=== PATIENT | male | born 1935 | race Two or more races ===

== ENCOUNTER 2017-12-14 17:28 | Inpatient (IN) | payer OTHER, MEDICAID ==
[~2017-12-14] VITALS: Ht 157.5 cm; Wt 65.8 kg
[2017-12-14 19:15] LABS: Basophils # (auto) 0 uL; Basophils % (auto) 0.4 % (0.0-2.0); Eosinophils # (auto) 0.4 uL; Eosinophils % (auto) 7.1 % (0.0-7.0); Hematocrit 38.8 % (41.0-53.0); Hemoglobin 13.2 g/dL (13.5-17.5); Lymphocytes # (auto) 1.3 uL; Lymphocytes % (auto) 20.2 % (10.0-50.0); Mean Corpuscular Hemoglobin 32.5 pg (28.0-32.0); Mean Corpuscular Hgb Conc. 34.2 g/dL (32.0-36.0); Mean Corpuscular Volume 95.2 fL (80.0-100.0); Monocytes # (auto) 0.5 uL; Monocytes % (auto) 8.1 % (0.0-12.0); Neutrophils % (auto) 64.2 % (37.0-80.0); Nucleated Red Blood Cells % 0.1 %; Platelet Count (auto) 113 10^3/uL (140-450); Red Blood Cells 4.07 10^6/uL (4.5-5.90); Red Cell Distribution Width 13.1 % (11.8-14.3); White Blood Cell 6.2 10^3/uL (4.4-10.8)
[2017-12-14 19:17] LABS: Chloride 106 mmol/L (98-107); Potassium 3.8 mmol/L (3.5-5.1); Sodium 140 mmol/L (136-145)
[2017-12-14 19:22] LABS: Albumin 3.3 g/dL (3.4-5.0); Anion Gap 9 (5-15); BUN/Creatinine Ratio 20.7; Blood Urea Nitrogen 24 mg/dL (7-18); Calcium 8.9 mg/dL (8.5-10.1); Carbon Dioxide 25 mmol/L (21-32); GFR African American 78 mL/min; GFR Non-African American 64 mL/min; Glucose 119 mg/dL (74-106); Magnesium 2.2 mg/dL (1.6-2.6)
[2017-12-14 19:29] LABS: Alanine Aminotransferase 22 U/L (16-61); Alkaline Phosphatase 71 U/L (45-117); Aspartate Aminotransferase 17 U/L (15-37); Bilirubin, Total 0.5 mg/dL (0.2-1.0); Total Protein 7.3 g/dL (6.4-8.2)
[2017-12-14 20:17] LABS: INR 1.05 (0.9-1.15); Partial Thromboplastin Time 25.7 sec (22.64-33.71); Prothrombin Time 11.4 sec (9.37-12.3)
[2017-12-14 21:30] LABS: Urine Bacteria FEW /hpf (None Seen); Urine Blood Negative /uL (Negative); Urine Hyaline Cast MOD /lpf (0 - 2); Urine Mucus FEW (None Seen); Urine Specific Gravity 1.017 (1.001-1.035); Urine WBC 2 /hpf (0 - 3)
[2017-12-15] VITALS (7 sets, daily range): BP systolic 113–132; BP diastolic 54–72
[2017-12-15] MEDS ORDERED: ASPirin 325 MG TAB PO ONE (00:15)
[2017-12-15] MEDS ORDERED: cefTRIAXone 1GM/10ml IVPUSH 10 ML IV ONE (00:15)
[2017-12-15] MEDS ORDERED: HYDROcodone-ACET 5/325MG TAB PO PRN (01:45)
[2017-12-15] MEDS ORDERED: MORPHINE SULFATE 4 MG/ML SYR/VIAL IV PRN (01:45)
[2017-12-15] MEDS ORDERED: ACETAMINOPHEN 500 MG TAB PO PRN (01:45)
[2017-12-15] MEDS ORDERED: ONDANSETRON HCL 4 MG/2 ML VIAL IV PRN (01:45)
[2017-12-15] MEDS ORDERED: NITROGLYCERIN 0.4 MG SL TAB SL PRN (01:45)
[2017-12-15] MEDS ORDERED: DEXTROSE (50%) 50ML SYRG IV PRN (04:15)
[2017-12-15] MEDS ORDERED: NAPR-505 PO (04:47)
[2017-12-15] MEDS ORDERED: METF-929 PO (04:47)
[2017-12-15] MEDS ORDERED: PANT40TA2 PO (04:47)
[2017-12-15] MEDS ORDERED: GLIM1TAB2 PO (04:47)
[2017-12-15] MEDS ORDERED: PNEUMOCOCCAL VACC POLYS 25 MCG/0.5 ML VIAL IM ONE (05:45)
[2017-12-15] MEDS: InsuLIN REG 1unit/0.01ml Soln (100units/ml) SC SCH ×4 (06:11→22:24)
[2017-12-15] MEDS: ACCU-CHEK COMFORT CURVE STRIP VI SCH ×4 (06:12→22:24)
[2017-12-15 07:36] LABS: Basophils # (auto) 0 uL; Basophils % (auto) 0.2 % (0.0-2.0); Eosinophils # (auto) 0.3 uL; Eosinophils % (auto) 5.2 % (0.0-7.0); Hematocrit 38.3 % (41.0-53.0); Hemoglobin 12.9 g/dL (13.5-17.5); Lymphocytes # (auto) 1.1 uL; Lymphocytes % (auto) 17.5 % (10.0-50.0); Mean Corpuscular Hemoglobin 32.2 pg (28.0-32.0); Mean Corpuscular Hgb Conc. 33.8 g/dL (32.0-36.0); Mean Corpuscular Volume 95.3 fL (80.0-100.0); Monocytes # (auto) 0.5 uL; Monocytes % (auto) 7.2 % (0.0-12.0); Neutrophils # (auto) 4.6 uL; Neutrophils % (auto) 69.9 % (37.0-80.0); Nucleated Red Blood Cells % 0.1 %; Platelet Count (auto) 205 10^3/uL (140-450); Red Blood Cells 4.02 10^6/uL (4.5-5.90); Red Cell Distribution Width 13.2 % (11.8-14.3); White Blood Cell 6.6 10^3/uL (4.4-10.8)
[2017-12-15 08:26] LABS: BUN/Creatinine Ratio 20.9; Calcium 8.5 mg/dL (8.5-10.1); Potassium 3.5 mmol/L (3.5-5.1)
[2017-12-15] MEDS: PANTOPRAZOLE 40 MG TAB PO SCH (10:04)
[2017-12-15] MEDS ORDERED: SOD CHL 0.45% 1,000 ML IV ONE (10:45)
[2017-12-15] MEDS: predniSONE 20 MG TAB PO SCH (11:31)
[2017-12-15] MEDS: ALBUTEROL SULF 2.5 MG/0.5ML(0.5%) NEB SOLN NEB SCH ×2 (13:00→19:39)
[2017-12-15] MEDS ORDERED: cefTRIAXone 1GM/10ml IVPUSH 10 ML IV SCH (22:00)
[2017-12-16] MEDS: ALBUTEROL SULF 2.5 MG/0.5ML(0.5%) NEB SOLN NEB SCH ×4 (01:00→19:37)
[2017-12-16 05:00] VITALS: BP 98/51
[2017-12-16] MEDS: ACCU-CHEK COMFORT CURVE STRIP VI SCH ×4 (06:11→20:51)
[2017-12-16] MEDS: InsuLIN REG 1unit/0.01ml Soln (100units/ml) SC SCH ×3 (06:12→17:55)
[2017-12-16 06:37] LABS: Basophils # (auto) 0 uL; Basophils % (auto) 0.1 % (0.0-2.0); Eosinophils # (auto) 0 uL; Eosinophils % (auto) 0.1 % (0.0-7.0); Hematocrit 35.5 % (41.0-53.0); Hemoglobin 12.5 g/dL (13.5-17.5); Lymphocytes # (auto) 0.8 uL; Lymphocytes % (auto) 11.4 % (10.0-50.0); Mean Corpuscular Hemoglobin 33.2 pg (28.0-32.0); Mean Corpuscular Hgb Conc. 35.4 g/dL (32.0-36.0); Mean Corpuscular Volume 93.9 fL (80.0-100.0); Monocytes # (auto) 0.5 uL; Monocytes % (auto) 6.8 % (0.0-12.0); Neutrophils # (auto) 5.4 uL; Neutrophils % (auto) 81.6 % (37.0-80.0); Nucleated Red Blood Cells % 0.1 %; Platelet Count (auto) 156 10^3/uL (140-450); Red Blood Cells 3.78 10^6/uL (4.5-5.90); Red Cell Distribution Width 12.8 % (11.8-14.3); White Blood Cell 6.6 10^3/uL (4.4-10.8)
[2017-12-16 06:46] LABS: Calcium 8.8 mg/dL (8.5-10.1); Potassium 3.7 mmol/L (3.5-5.1)
[2017-12-16 09:00] VITALS: BP 106/62
[2017-12-16] MEDS ORDERED: DEXTROSE (50%) 50ML SYRG IV PRN (11:00)
[2017-12-16] MEDS: predniSONE 20 MG TAB PO SCH (11:22)
[2017-12-16] MEDS: PANTOPRAZOLE 40 MG TAB PO SCH (11:23)
[2017-12-16 13:00] VITALS: BP 131/55
[2017-12-16 17:00] VITALS: BP 125/63
[2017-12-16] MEDS ORDERED: InsuLIN REG 1unit/0.01ml Soln (100units/ml) SC SCH (22:00)
[2017-12-16 22:49] VITALS: BP 107/58
[2017-12-17] MEDS: ALBUTEROL SULF 2.5 MG/0.5ML(0.5%) NEB SOLN NEB SCH ×3 (00:39→11:58)
[2017-12-17] MEDS: InsuLIN REG 1unit/0.01ml Soln (100units/ml) SC SCH ×2 (05:41→11:45)
[2017-12-17] MEDS: ACCU-CHEK COMFORT CURVE STRIP VI SCH ×2 (05:41→11:45)
[2017-12-17 05:44] VITALS: BP 126/65
[2017-12-17 07:00] LABS: Potassium 3.8 mmol/L (3.5-5.1)
[2017-12-17 07:15] LABS: BUN/Creatinine Ratio 31.4; Calcium 8.7 mg/dL (8.5-10.1)
[2017-12-17 09:00] VITALS: BP 120/60
[2017-12-17 09:49] LABS: Basophils # (auto) 0.1 uL; Basophils % (auto) 1.3 % (0.0-2.0); Eosinophils # (auto) 0 uL; Eosinophils % (auto) 0.2 % (0.0-7.0); Hematocrit 35.8 % (41.0-53.0); Hemoglobin 12.1 g/dL (13.5-17.5); Lymphocytes % (auto) 14.9 % (10.0-50.0); Mean Corpuscular Hemoglobin 32.1 pg (28.0-32.0); Mean Corpuscular Hgb Conc. 33.7 g/dL (32.0-36.0); Mean Corpuscular Volume 95.2 fL (80.0-100.0); Monocytes # (auto) 0.4 uL; Monocytes % (auto) 6.1 % (0.0-12.0); Neutrophils # (auto) 5.4 uL; Neutrophils % (auto) 77.5 % (37.0-80.0); Nucleated Red Blood Cells % 0.1 %; Red Blood Cells 3.77 10^6/uL (4.5-5.90); Red Cell Distribution Width 13.2 % (11.8-14.3)
[2017-12-17 10:27] LABS: Platelet Count (auto) 125 10^3/uL (140-450)
[2017-12-17] MEDS: PANTOPRAZOLE 40 MG TAB PO SCH (10:44)
[2017-12-17] MEDS ORDERED: predniSONE 20 MG TAB PO SCH (10:45)
[2017-12-17 13:00] VITALS: BP 117/64
[2017-12-17] MEDS ORDERED: MORPHINE SULFATE 8mg/ml INJ SDV IV PRN (17:45)
== END 2017-12-17 17:10 | disposition home or self-care (01) | DRG 202 ==
LOC: EDBD 17:28 → ER 17:40 → TELE 17:41 → TELE-WESTW 12-15 03:50
PROVIDERS: ADMIT Nurse Practitioner Family; ATTEND Internal Medicine
DX: J45.901 Unspecified asthma with (acute) exacerbation (principal); G93.41 Metabolic encephalopathy; E86.0 Dehydration; E11.9 Type 2 diabetes mellitus without complications; F17.200 Nicotine dependence, unspecified, uncomplicated; J32.0 Chronic maxillary sinusitis; K21.9 Gastro-esophageal reflux disease without esophagitis; M12.9 Arthropathy, unspecified; N40.1 Benign prostatic hyperplasia with lower urinary tract symptoms; R39.15 Urgency of urination; Z79.84 Long term (current) use of oral hypoglycemic drugs; Z23 Encounter for immunization; Z90.49 Acquired absence of other specified parts of digestive tract; Z79.4 Long term (current) use of insulin
CPT/HCPCS: 36415; 70450; 70551; 71045; 80048; 80053; 81001; 82607; 82962; 83036; 83735; 83880; 84443; 84484; 85025; 85610; 85730; 86141; 87086; 93005; 93306; 94640; 95819; 96374; 97163; J1815

== ENCOUNTER 2019-08-04 21:21 | Inpatient (IN) | payer OTHER, MEDICAID ==
[~2019-08-04] VITALS: Ht 170.2 cm; Wt 64.6 kg
[~2019-08-04 21:21] MED LIST: GLIM1TAB3 PO; METF-929 PO; PANT40TA2 PO
[2019-08-04 22:42] LABS: Hematocrit 39.3 % (41.0-53.0); Hemoglobin 13.4 g/dL (13.5-17.5); Mean Corpuscular Hemoglobin 31.1 pg (28.0-32.0); Mean Corpuscular Volume 91.5 fL (80.0-100.0); Platelet Count (auto) 113 10^3/uL (140-450); Red Blood Cells 4.29 10^6/uL (4.5-5.90); Red Cell Distribution Width 13.7 % (11.8-14.3); White Blood Cell 2.9 10^3/uL (4.4-10.8)
[2019-08-04 22:53] LABS: Basophils % (manual) 0 (0.0-2.0); Blast Cells 0; Eosinophils % (manual) 0 (0-7); Metamyelocytes % 0; Myelocytes % 0; Promyelocytes % 0; Reactive Lymphocytes 0
[2019-08-04 22:56] LABS: INR 1.18 (0.9-1.15); Partial Thromboplastin Time 31.1 sec (23.64-32.05)
[2019-08-04 22:59] LABS: Albumin 3.1 g/dL (3.4-5.0); Calcium 8.8 mg/dL (8.5-10.1); Potassium 3.8 mmol/L (3.5-5.1)
[2019-08-04 23:04] LABS: BUN/Creatinine Ratio 29.8; Bilirubin, Total 1.2 mg/dL (0.2-1.0); Total Protein 7.4 g/dL (6.4-8.2)
[2019-08-04 23:12] LABS: Band Neutrophils % (manual) 5; Lymphocytes % (manual) 12 (10.0-50.0); Monocytes % (manual) 16 (0-12)
[2019-08-04] MEDS ORDERED: LEVOFLOXACIN 750MG 150 ML IV ONE (23:30)
[2019-08-04] MEDS ORDERED: cefTRIAXone 1GM/50ML D5W 50 ML IV ONE (23:30)
[2019-08-04 23:57] LABS: Lactic Acid w/Reflex 2.4 mmol/L (0.4-2.0)
[2019-08-05] MEDS ORDERED: IPRATROPIUM BROM 0.5 MG/2.5ML INH SOL NEB ONE (01:30)
[2019-08-05] MEDS ORDERED: ALBUTEROL SULF 2.5 MG/0.5ML(0.5%) NEB SOLN NEB ONE (01:30)
[2019-08-05] MEDS ORDERED: LORazepam 2MG/ML-1ML VIAL IV ONE (02:30)
[2019-08-05] MEDS ORDERED: PROMETHAZINE HCL 25 MG/ML 1ML IV ONE (03:15)
[2019-08-05 03:30] VITALS: BP 123/61
[2019-08-05] MEDS ORDERED: HYDROcodone-ACET 5/325MG TAB PO PRN (05:00)
[2019-08-05] MEDS ORDERED: ACETAMINOPHEN 325 MG TAB PO PRN (05:00)
[2019-08-05] MEDS ORDERED: DEXTROSE (50%) 50ML SYRG IV PRN (05:00)
[2019-08-05] MEDS ORDERED: MORPHINE SULFATE 4 MG/ML SYR/VIAL IV PRN (05:00)
[2019-08-05] MEDS ORDERED: ONDANSETRON HCL 4 MG/2 ML VIAL IV PRN (05:00)
[2019-08-05] MEDS ORDERED: DOCUSATE SOD 100 MG CAP PO PRN (05:00)
[2019-08-05] MEDS: SODIUM CHLORIDE 0.9% 1,000 ML IV SCH ×2 (05:15→22:45)
--- NOTE | 2019-08-05 05:40 | NUR ---
Respiratory note: CALLED TO PATIENTS BED FOR PRN MED-NEB TX. PATIENT PRESENTED WITH COARSE EXPIRATORY WHEEZES BILATERALLY; PRN MED-NEB ADMINISTERED AT THIS TIME.
[2019-08-05] MEDS: IPRATROPIUM BROM 0.5 MG/2.5ML INH SOL NEB PRN ×2 (05:42→12:01)
[2019-08-05] MEDS: ALBUTEROL SULF 2.5 MG/0.5ML(0.5%) NEB SOLN NEB PRN ×2 (05:42→12:02)
[2019-08-05 07:24] LABS: BUN/Creatinine Ratio 27.3; Calcium 8.9 mg/dL (8.5-10.1)
--- NOTE | 2019-08-05 07:35 | NUR ---
MS admit from ER FRANCISCA GARCIA arrived in room via gurney to [place]. Patient oriented to JUANJO HERNANDEZ, RN primary RN, unit, room, bed, and unit policies regarding patient care and visiting hours. Patients daughter in room with patient. All questions and concerns addressed, patient verbalized understanding. Patient VS 99.1, 100, 19, 94% and 118/63. Will continue to monitor.
[2019-08-05] MEDS: InsuLIN REG 1unit/0.01ml Soln (100units/ml) SC SCH ×4 (08:00→20:00)
[2019-08-05] MEDS: ACCU-CHEK COMFORT CURVE STRIP VI SCH ×4 (08:05→20:58)
[2019-08-05 09:24] VITALS: BP 118/63
--- NOTE | 2019-08-05 10:25 | NUR ---
Dr. Awan bedside with patient discussing plan of care. Orders received and carried out.
[2019-08-05] MEDS ORDERED: CLINDAMYCIN 600MG IV 50 ML IV ONE (10:45)
[2019-08-05] MEDS ORDERED: LEVOFLOXACIN 750MG 150 ML IV ONE (10:45)
[2019-08-05] MEDS ORDERED: MORPHINE SULF INJ 2 MG/ML SYRINGE 1ML IV PRN (11:00)
[2019-08-05] MEDS: PANTOPRAZOLE 40 MG TAB PO SCH (11:05)
[2019-08-05 11:52] LABS: Hematocrit 37.4 % (41.0-53.0); Hemoglobin 12.6 g/dL (13.5-17.5); Mean Corpuscular Hemoglobin 30.9 pg (28.0-32.0); Mean Corpuscular Hgb Conc. 33.7 g/dL (32.0-36.0); Mean Corpuscular Volume 91.7 fL (80.0-100.0); Red Blood Cells 4.09 10^6/uL (4.5-5.90); Red Cell Distribution Width 13.8 % (11.8-14.3); White Blood Cell 3.5 10^3/uL (4.4-10.8)
--- NOTE | 2019-08-05 12:00 | NUR ---
Respiratory note: PRN MED-NEB GIVEN FOR SOB AND AUDIBLE WHEEZES. SEE INTERVENTION FOR ALL VITALS.
[2019-08-05 12:46] LABS: Platelet Count (auto) 81 10^3/uL (140-450)
[2019-08-05 12:47] LABS: Basophils % (manual) 0 (0.0-2.0); Blast Cells 0; Metamyelocytes % 0; Promyelocytes % 0; Reactive Lymphocytes 0
[2019-08-05 12:58] LABS: Band Neutrophils % (manual) 5; Eosinophils % (manual) 2 (0-7); Lymphocytes % (manual) 12 (10.0-50.0); Monocytes % (manual) 17 (0-12); Myelocytes % 1
[2019-08-05 13:26] VITALS: BP 129/74
[2019-08-05] MEDS: IPRATROPIUM BROM 0.5 MG/2.5ML INH SOL NEB SCH ×3 (14:45→22:15)
[2019-08-05] MEDS: ACETYLCYSTEINE 10 %(100MG/ML) SOL 4ML NEB SCH ×3 (14:45→22:16)
[2019-08-05] MEDS: ALBUTEROL SULF 2.5 MG/0.5ML(0.5%) NEB SOLN NEB SCH ×3 (14:45→22:15)
[2019-08-05] MEDS ORDERED: CLINDAMYCIN 600MG IV 50 ML IV SCH (15:00)
[2019-08-05] MEDS ORDERED: METOPROLOL TARTRATE 25 MG TAB PO ONE (15:15)
[2019-08-05] MEDS ORDERED: LISINOPRIL 5 MG TAB PO ONE (15:15)
[2019-08-05 17:00] VITALS: BP 125/68
[2019-08-05 18:18] VITALS: BP 106/68
[2019-08-05] MEDS ORDERED: cefTRIAXone 1GM/50ML D5W 50 ML IV SCH (21:00)
[2019-08-05] MEDS: CLINDAMYCIN 600MG IV 50 ML IV SCH (21:49)
[2019-08-05] MEDS: METOPROLOL TARTRATE 25 MG TAB PO SCH (21:50)
[2019-08-05 22:00] VITALS: BP 111/74
--- NOTE | 2019-08-05 23:25 | NUR ---
ASSESSMENT The patient's lung sounds are very moist and the patient has audible wheezing. Charge nurse also assessed the patient. Will page hospitalist.
[2019-08-05] MEDS ORDERED: FUROSEMIDE 20 MG/2 ML VIAL IV ONE (23:30)
--- NOTE | 2019-08-05 23:30 | NUR ---
HOSPITALIST BERNABE Discussed respiratory findings with MD Mancuso. New order for 20 mg Lasix IV once has been obtained.
--- NOTE | 2019-08-05 23:55 | NUR ---
LOW GLUCOSE Patient's glucose was 45 mg/dl but the patient is asymptomatic. Patient has been given 15 mg of orange juice. Will reassess the patient's glucose level.
--- NOTE | 2019-08-06 00:10 | NUR ---
MD aware of low glucose level. Will continue to monitor the patient's glucose level.
[2019-08-06] MEDS: ACETYLCYSTEINE 10 %(100MG/ML) SOL 4ML NEB SCH ×7 (02:00→22:16)
[2019-08-06] MEDS: ALBUTEROL SULF 2.5 MG/0.5ML(0.5%) NEB SOLN NEB SCH ×7 (02:00→22:15)
[2019-08-06] MEDS: IPRATROPIUM BROM 0.5 MG/2.5ML INH SOL NEB SCH ×7 (02:00→22:15)
[2019-08-06] MEDS: ACCU-CHEK COMFORT CURVE STRIP VI SCH ×7 (03:20→23:55)
[2019-08-06] MEDS: InsuLIN REG 1unit/0.01ml Soln (100units/ml) SC SCH ×7 (04:00→23:54)
[2019-08-06 05:00] VITALS: BP 102/66
[2019-08-06] MEDS: CLINDAMYCIN 600MG IV 50 ML IV SCH ×3 (06:22→21:59)
[2019-08-06 06:27] LABS: Hematocrit 38.9 % (41.0-53.0); Hemoglobin 13.5 g/dL (13.5-17.5); Mean Corpuscular Hemoglobin 31.4 pg (28.0-32.0); Mean Corpuscular Hgb Conc. 34.7 g/dL (32.0-36.0); Mean Corpuscular Volume 90.5 fL (80.0-100.0); Platelet Count (auto) 68 10^3/uL (140-450); Red Cell Distribution Width 13.7 % (11.8-14.3); White Blood Cell 3.3 10^3/uL (4.4-10.8)
[2019-08-06 06:28] LABS: Magnesium 1.9 mg/dL (1.6-2.6); Potassium 3.4 mmol/L (3.5-5.1)
[2019-08-06 06:32] LABS: Basophils % (manual) 0 (0.0-2.0); Blast Cells 0; Metamyelocytes % 0; Myelocytes % 0; Promyelocytes % 0; Reactive Lymphocytes 0
[2019-08-06 06:36] LABS: Albumin 2.6 g/dL (3.4-5.0); Calcium 8.8 mg/dL (8.5-10.1); Total Protein 7.1 g/dL (6.4-8.2)
--- NOTE | 2019-08-06 07:30 | NUR ---
Opening Shift Note Assumed care of patient, awake and alert with family member bedside. No S/S of distress/SOB or pain. Instructed on POC and to call for assist PRN, bed in locked and lowest position and call light within reach. Will continue to monitor for changes Q1hr and PRN.
--- NOTE | 2019-08-06 07:30 | NUR ---
IV REMOVED Patient removed his own IV from right hand. New IV will be started.
[2019-08-06 07:47] LABS: Band Neutrophils % (manual) 2; Eosinophils % (manual) 3 (0-7); Lymphocytes % (manual) 21 (10.0-50.0); Monocytes % (manual) 10 (0-12)
--- NOTE | 2019-08-06 07:50 | NUR ---
LOW GLUCOSE Patient's glucose was 55 mg/dl, patient is asymptomatic. Patient has been given 30 mg of orange juice. Will reassess the patient's glucose level.
[2019-08-06 08:00] VITALS: BP 102/62
--- NOTE | 2019-08-06 08:00 | NUR ---
REASSESSMENT OF GLUCOSE Reassessed patients blood sugar, patient is now 103. Will continue to monitor.
--- NOTE | 2019-08-06 08:00 | NUR ---
IV insertion IV access obtained, via clean sterile technique by inserting 22 gauge catheter to the left wrist. IV secured properly. No trauma to site. Patient tolerated procedure well.
[2019-08-06 09:04] VITALS: BP 102/62
[2019-08-06] MEDS: LEVOFLOXACIN 750MG 150 ML IV SCH (10:04)
[2019-08-06] MEDS: LISINOPRIL 5 MG TAB PO SCH (10:05)
[2019-08-06] MEDS: PANTOPRAZOLE 40 MG TAB PO SCH (10:05)
[2019-08-06] MEDS: METOPROLOL TARTRATE 25 MG TAB PO SCH ×2 (10:05→21:59)
--- NOTE | 2019-08-06 10:25 | NUR ---
Dr. Awan bedside with patient discussing plan of care. Orders received and carried out.
[2019-08-06] MEDS: FUROSEMIDE 20 MG/2 ML VIAL IV SCH ×2 (11:15→17:41)
[2019-08-06 12:40] VITALS: BP 100/68
[2019-08-06] MEDS: SODIUM CHLORIDE 0.9% 1,000 ML IV SCH (14:16)
[2019-08-06 14:42] LABS: Urine Bacteria NONE SEEN /hpf (None Seen); Urine Blood Negative /uL (Negative); Urine Mucus FEW (None Seen); Urine Specific Gravity 1.019 (1.001-1.035); Urine WBC 3 /hpf (0 - 3)
[2019-08-06 17:08] VITALS: BP 106/66
--- NOTE | 2019-08-06 19:20 | NUR ---
Opening Shift Note Assumed care of patient, awake and alert. No S/S of distress/SOB or pain. Instructed on POC and to call for assist PRN, will continue to monitor for changes Q1hr and PRN.
[2019-08-07] VITALS (7 sets, daily range): BP systolic 92–111; BP diastolic 53–64
[2019-08-07] MEDS: ALBUTEROL SULF 2.5 MG/0.5ML(0.5%) NEB SOLN NEB SCH ×6 (01:59→23:03)
[2019-08-07] MEDS: IPRATROPIUM BROM 0.5 MG/2.5ML INH SOL NEB SCH ×6 (01:59→23:03)
[2019-08-07] MEDS: ACETYLCYSTEINE 10 %(100MG/ML) SOL 4ML NEB SCH ×6 (01:59→23:03)
[2019-08-07] MEDS: InsuLIN REG 1unit/0.01ml Soln (100units/ml) SC SCH ×5 (04:00→20:00)
[2019-08-07] MEDS: ACCU-CHEK COMFORT CURVE STRIP VI SCH ×5 (04:02→20:56)
[2019-08-07 05:48] LABS: Hematocrit 36.6 % (41.0-53.0); Hemoglobin 12.4 g/dL (13.5-17.5); Mean Corpuscular Hemoglobin 30.8 pg (28.0-32.0); Mean Corpuscular Hgb Conc. 33.9 g/dL (32.0-36.0); Mean Corpuscular Volume 91.1 fL (80.0-100.0); Platelet Count (auto) 89 10^3/uL (140-450); Red Blood Cells 4.02 10^6/uL (4.5-5.90); Red Cell Distribution Width 13.5 % (11.8-14.3); White Blood Cell 4.2 10^3/uL (4.4-10.8)
[2019-08-07 06:08] LABS: Potassium 3.2 mmol/L (3.5-5.1)
[2019-08-07 06:19] LABS: Albumin 2.4 g/dL (3.4-5.0); BUN/Creatinine Ratio 23.3; Bilirubin, Total 0.7 mg/dL (0.2-1.0); Calcium 8.3 mg/dL (8.5-10.1); Magnesium 1.8 mg/dL (1.6-2.6); Phosphorus 3.1 mg/dL (2.5-4.90); Total Protein 6.4 g/dL (6.4-8.2)
[2019-08-07 06:26] LABS: Basophils % (manual) 0 (0.0-2.0); Blast Cells 0; Myelocytes % 0; Promyelocytes % 0; Reactive Lymphocytes 0
[2019-08-07 06:29] LABS: Band Neutrophils % (manual) 4; Eosinophils % (manual) 1 (0-7); Lymphocytes % (manual) 27 (10.0-50.0); Metamyelocytes % 1; Monocytes % (manual) 6 (0-12)
[2019-08-07] MEDS: CLINDAMYCIN 600MG IV 50 ML IV SCH ×3 (06:38→21:24)
[2019-08-07] MEDS: FUROSEMIDE 20 MG/2 ML VIAL IV SCH ×2 (06:38→18:00)
[2019-08-07] MEDS: SODIUM CHLORIDE 0.9% 1,000 ML IV SCH ×2 (06:39→23:40)
--- NOTE | 2019-08-07 07:45 | NUR ---
Opening Shift Note Assumed care of patient, patient sleeping in bed with sitter bedside. No S/S of distress/SOB or pain. Bed is in locked and lowest position with call light within reach. Will continue to monitor for changes Q1hr and PRN.
[2019-08-07] MEDS: LISINOPRIL 5 MG TAB PO SCH (10:00)
[2019-08-07] MEDS: METOPROLOL TARTRATE 25 MG TAB PO SCH ×2 (10:00→20:57)
[2019-08-07] MEDS: PANTOPRAZOLE 40 MG TAB PO SCH (10:08)
[2019-08-07] MEDS: LEVOFLOXACIN 750MG 150 ML IV SCH (10:08)
--- NOTE | 2019-08-07 17:10 | NUR ---
Paged Dr. Zhou regarding patient.
--- NOTE | 2019-08-07 17:40 | NUR ---
assessment Patient is a 84 year old male who is confused. Per patients son in law Greg who is at bedside prior to admission patient lived home with him and patients daughter Hayley. Patient has a cane and fww for home use. Patients PCP is Dr Karl Menon. Patient has good family support. Patient may benefit from home health safety on discharge. I informed Greg he has a right to speak to a medical social worker regarding all care. I informed Greg he has a right to participate in any and all discharge planning. Greg is aware of visiting hours on the hospital floor. I informed Greg he has a right to privacy. Patient does not have a POA and advanced directive. I have offered Greg information on POA and advanced directives. Greg verbalized understanding and agreed to discharge plan home. Addendum: 08/07/19 at 1742 by Lisa MULTANI Amended: Links added.
--- NOTE | 2019-08-07 18:10 | NUR ---
[facility] Hospitalist, Al Forbes, due to patients potassium of 3.2. Orders received and carried out.
[2019-08-07] MEDS ORDERED: POTASSIUM CHL 20 Meq TABLET PO ONE ×2 (18:15→19:00)
--- NOTE | 2019-08-07 18:30 | NUR ---
Spoke to Dr. Zhou, informed her of patients potassium of 3.2. Also informed her Al Forbes has ordered replacement medication. Per Dr. Zhou, she has requested an additional 20 meq's. Orders carried out per Doctor.
--- NOTE | 2019-08-07 19:50 | NUR ---
Opening Shift Note Assumed care of patient, awake, follows direction, oriented to self and place, reoriented to time and situation. On oxygen at 3L aki [place]. No S/S of distress/SOB or pain. sitter at bedside. Instructed on POC and to call for assist PRN, will continue to monitor for changes Q1hr and PRN.
[2019-08-08] MEDS: ACCU-CHEK COMFORT CURVE STRIP VI SCH ×6 (00:09→21:05)
[2019-08-08] MEDS: InsuLIN REG 1unit/0.01ml Soln (100units/ml) SC SCH ×6 (00:16→21:04)
[2019-08-08] MEDS: ALBUTEROL SULF 2.5 MG/0.5ML(0.5%) NEB SOLN NEB SCH ×6 (02:09→22:06)
[2019-08-08] MEDS: IPRATROPIUM BROM 0.5 MG/2.5ML INH SOL NEB SCH ×6 (02:09→22:06)
[2019-08-08] MEDS: ACETYLCYSTEINE 10 %(100MG/ML) SOL 4ML NEB SCH ×6 (02:09→22:06)
[2019-08-08 04:57] VITALS: BP 109/56
[2019-08-08] MEDS: FUROSEMIDE 20 MG/2 ML VIAL IV SCH ×2 (05:48→17:40)
[2019-08-08] MEDS: CLINDAMYCIN 600MG IV 50 ML IV SCH (05:48)
--- NOTE | 2019-08-08 07:05 | NUR ---
Closing Note patient resting in bed with even and unlabored respirations, no s/s of distress, sitter at bedside. Endorsed care to day shift RN.
[2019-08-08 07:11] LABS: Calcium 8.4 mg/dL (8.5-10.1); Magnesium 1.9 mg/dL (1.6-2.6); Potassium 3.7 mmol/L (3.5-5.1)
--- NOTE | 2019-08-08 08:05 | NUR ---
ASSUMED CARE OF PT. PT IS AWAKE AND ALERT. NO SOB OR SIGNS OF DISTRESS NOTED. SITTER AT BEDSIDE. REVIEWED POC. CALL LIGHT WITHIN REACH. SIDE RAILS UP X2. BED IN LOWEST POSITION. TOLD PT TO CALL FOR ASSISTANCE PRN. WILL CONTINUE TO MONITOR.
[2019-08-08 09:00] VITALS: BP 121/60
[2019-08-08] MEDS ORDERED: ENOXAPARIN SOD 60 MG/0.6 ML SYRINGE SC SCH (10:15)
[2019-08-08] MEDS ORDERED: LEVOFLOXACIN 250 MG TAB PO ONE (10:30)
[2019-08-08] MEDS: METOPROLOL TARTRATE 25 MG TAB PO SCH ×2 (10:51→21:06)
[2019-08-08] MEDS: PANTOPRAZOLE 40 MG TAB PO SCH (10:51)
[2019-08-08] MEDS: LISINOPRIL 5 MG TAB PO SCH (10:52)
--- NOTE | 2019-08-08 11:00 | NUR ---
ADMINISTERED ONE TIME DOSE OF LOVENOX PER MD ORDERS. PT TOLERATED WELL.
[2019-08-08 13:00] VITALS: BP_SYST 86; BP_SYST 92; BP_DIAS 50; BP_DIAS 55
[2019-08-08] MEDS: Ensure HIGH Protein Chocolate 8oz Bottle PO SCH ×2 (16:50→18:04)
[2019-08-08 17:00] VITALS: BP 106/62
--- NOTE | 2019-08-08 20:00 | NUR ---
Opening Shift Note Assumed care of patient, awake, follows direction, oriented to self reoriented to time and situation. On oxygen at 3L via NC with even and unlabored respiration. No S/S of distress/SOB or pain. sitter at bedside. PIV intact and patent. Instructed on POC and to call for assist PRN, will continue to monitor for changes Q1hr and PRN.
[2019-08-08] MEDS: APIXABAN 2.5 MG TAB PO SCH (21:02)
[2019-08-08 22:00] VITALS: BP 117/64
[2019-08-09] MEDS: ACCU-CHEK COMFORT CURVE STRIP VI SCH ×6 (00:08→14:35)
--- NOTE | 2019-08-09 02:00 | NUR ---
IV removal IV DC'd with clean sterile technique, catheter fully intact. Pressure dressing applied to site. Patient tolerated well. NOTE:
[2019-08-09] MEDS: ALBUTEROL SULF 2.5 MG/0.5ML(0.5%) NEB SOLN NEB SCH ×4 (02:47→14:30)
[2019-08-09] MEDS: IPRATROPIUM BROM 0.5 MG/2.5ML INH SOL NEB SCH ×4 (02:47→14:30)
[2019-08-09] MEDS: ACETYLCYSTEINE 10 %(100MG/ML) SOL 4ML NEB SCH ×4 (02:48→14:30)
--- NOTE | 2019-08-09 03:00 | NUR ---
IV insertion IV access obtained, via clean sterile technique by inserting 22 gauge catheter at right hand after 2 attempt(s). IV secured properly. No trauma to site. Patient tolerated well. NOTE: patient tolerated well with [place] speaker at bedside
[2019-08-09] MEDS: InsuLIN REG 1unit/0.01ml Soln (100units/ml) SC SCH ×5 (04:00→14:35)
[2019-08-09] MEDS ORDERED: TEMAZEPAM 15 MG CAP PO ONE (04:30)
[2019-08-09 05:00] VITALS: BP 161/80
[2019-08-09] MEDS: FUROSEMIDE 20 MG/2 ML VIAL IV SCH ×2 (05:33→14:36)
--- NOTE | 2019-08-09 06:51 | NUR ---
Respiratory note: At bedside for scheduled medneb tx. Medneb tx given, pt tolerated well, no adverse reactions noted. CPT not administered, attempted CPT but pt started swatting arms to stop tx. Will reattempt at next scheduled tx. Sitter at bedside. Will continue to monitor.
--- NOTE | 2019-08-09 06:58 | NUR ---
Closing Note patient resting in bed with even and unlabored respirations, no s/s of distress, sitter at bedside. Endorsed care to day shift RN.
[2019-08-09] MEDS: Ensure HIGH Protein Chocolate 8oz Bottle PO SCH ×3 (08:28→14:36)
[2019-08-09] MEDS ORDERED: LEVOFLOXACIN 250 MG TAB PO SCH (10:00)
[2019-08-09] MEDS ORDERED: LEVOFLOXACIN 500 MG TAB PO SCH (10:00)
--- NOTE | 2019-08-09 10:07 | NUR ---
Respiratory note: AT BEDSIDE FOR SCHEDULED MEDNEB TX. CPT NOT DONE, PT NOT TOLERATING AT THIS TIME. MEDNEB TX GIVEN, NO ADVERSE REACTIONS NOTED. WILL RETURN FOR NEXT SCHEDULED TX.
[2019-08-09] MEDS: APIXABAN 2.5 MG TAB PO SCH (11:17)
[2019-08-09] MEDS: PANTOPRAZOLE 40 MG TAB PO SCH (11:18)
[2019-08-09] MEDS ORDERED: APIX2.5T PO (11:21)
[2019-08-09] MEDS ORDERED: FURO1TAB33 PO (11:22)
[2019-08-09] MEDS ORDERED: MET25T PO (11:22)
[2019-08-09] MEDS: LISINOPRIL 5 MG TAB PO SCH (11:24)
[2019-08-09] MEDS: METOPROLOL TARTRATE 25 MG TAB PO SCH (11:24)
[2019-08-09 12:57] VITALS: BP 118/73
--- NOTE | 2019-08-09 14:30 | NUR ---
Respiratory note: AT BEDSIDE FOR MEDNEB TX, NO ADVERSE REACTIONS NOTED. CPT NOT ADMINISTERED, PT NOT TOLERATING AT THIS TIME. SITTER AT BEDSIDE. WILL ENDORSE PT CARE TO NOC SHIFT RT.
--- NOTE | 2019-08-09 14:37 | NUR ---
CALLED PTS DAUGHTER REGARDING DC. SHE STATED SHE WOULD BE IN TO [facility] PT "IN 1 HOUR".
--- NOTE | 2019-08-09 15:12 | NUR ---
Nutrition Assessment Notes Please refer to link for full assessment notes Est energy needs: [id number] kcals (23-25 kcals/kgBW) Est protein needs: 65-78 gms/day (1.0-1.2 gm/kgBW) Will continue to monitor and reassess prn Addendum: 08/09/19 at [address] Amended: Links added.
--- NOTE | 2019-08-09 17:54 | NUR ---
Discharge instructions given as ordered. Encourage to follow up with PMD as instructed. All questions and concerns addressed. Patient verbalized understanding. Medication reconciliation form completed and copy given to patient. Home medications held in Pharmacy returned to patient, and needed vaccines given. IV removed with catheter intact, pressure dressing applied. Telemetry unit returned to ICU. Patient taken to vehicle via wheelchair with all personal belongings, accompanied by staff and family member. No distress noted at time of departure.
== END 2019-08-09 18:00 | disposition home or self-care (01) | DRG 871 ==
LOC: EDBD 21:21 → ER 21:23 → OVERFLOW 21:24 → WEST WING 08-05 07:40 → TELE-WESTW 08-07 06:19
PROVIDERS: ADMIT Hospitalist; ATTEND Internal Medicine Nephrology
DX: A41.9 Sepsis, unspecified organism (principal); J18.9 Pneumonia, unspecified organism; J44.0 Chronic obstructive pulmonary disease with (acute) lower respiratory infection; E11.65 Type 2 diabetes mellitus with hyperglycemia; E11.21 Type 2 diabetes mellitus with diabetic nephropathy; E66.9 Obesity, unspecified; E86.0 Dehydration; I48.91 Unspecified atrial fibrillation; K21.9 Gastro-esophageal reflux disease without esophagitis; E11.9 Type 2 diabetes mellitus without complications; I11.0 Hypertensive heart disease with heart failure; D69.6 Thrombocytopenia, unspecified; Z79.84 Long term (current) use of oral hypoglycemic drugs; Z68.22 Body mass index [BMI] 22.0-22.9, adult
CPT/HCPCS: 36415; 71045; 80048; 80053; 80061; 81001; 82962; 83036; 83605; 83735; 83880; 84100; 84443; 84484; 85007; 85025; 85027; 85379; 85610; 85730; 87040; 93005; 93306; 93970; 94640; 94667; 94668; 96365; 96368; 96375; G0378; J0696; J1815; J1956; J3490